=== PATIENT | male | born 1990 | race Hispanic/Latino ===

== ENCOUNTER 2017-04-24 06:35 | Day surgery (SDC) | payer OTHER ==
[2017-04-24 07:01] VITALS: BMI 26.9
[2017-04-24 07:14] VITALS: O2SAT 99
[2017-04-24] MEDS ORDERED: Propofol 10 mg/ml Inj (20 ML) ONE ×2 (08:02→08:15)
[2017-04-24 08:42] VITALS: TEMP 97.1
[2017-04-24 09:38] VITALS: BP 131/65; PULSE 75; RESP 18
== END 2017-04-24 09:30 | disposition home or self-care (01) ==
LOC: C.ENDO 06:35
PROVIDERS: ATTEND Internal Medicine Gastroenterology
DX: K21.0 Gastro-esophageal reflux disease with esophagitis (principal); K31.9 Disease of stomach and duodenum, unspecified; Z79.899 Other long term (current) drug therapy
CPT/HCPCS: 43239; 88305; J2704; J3010